=== PATIENT | female | born 1950 | race Caucasian/White ===

== ENCOUNTER 2021-01-24 21:56 | Emergency (ER) | payer OTHER ==
[~2021-01-24] VITALS: Ht 157.5 cm; Wt 77.1 kg
[2021-01-24] MEDS ORDERED: CEPH500 PO (22:52)
== END 2021-01-24 23:04 | disposition home or self-care (01) ==
LOC: ER 21:56
DX: L03.114 Cellulitis of left upper limb (principal)
CPT/HCPCS: 99282